=== PATIENT | male | born 1965 | race Hispanic/Latino ===

== ENCOUNTER → 2017-10-02 | Outpatient (CLI) | payer OTHER, MEDICARE ==
[~2017-10-02] MED LIST: AMIT50TA3 PO; CHLO25TA3 PO; GLIP10TA9 PO; ISOS1POW PO; LISI2.5T2 PO; METF10004 PO; PIOG30TA26 PO; PROP10TA10 PO
== END | disposition home or self-care (01) ==
LOC: RAH 07:39
PROVIDERS: ATTEND Internal Medicine Gastroenterology
DX: R18.8 Other ascites (principal); R16.1 Splenomegaly, not elsewhere classified; K74.60 Unspecified cirrhosis of liver
CPT/HCPCS: 76700

== ENCOUNTER 2018-06-05 11:02 | Observation (INO) | payer OTHER, MEDICARE ==
[~2018-06-05] VITALS: Ht 170.2 cm; Wt 94.0 kg
[~2018-06-05 11:02] MED LIST changes: +METF-446 PO; -METF10004 PO; -PIOG30TA26 PO; +PIOG30TA70 PO
[2018-06-05 11:39] LABS: BASOPHILS % (AUTO) 0.3 % (0.0-5.0); HEMATOCRIT 41.6 % (42-54); LYMPHOCYTES % (AUTO) 17.2 % (21.0-51.0); MEAN CORPUSCULAR HEMOGLOBIN 29.5 pg (27.0-33.0); MEAN CORPUSCULAR HGB CONC 33.4 g/dL (32.0-36.0); MEAN CORPUSCULAR VOLUME 88.4 fL (79-99); MONOCYTES % (AUTO) 9.2 % (3.0-13.0); NEUTROPHILS % (AUTO) 68.3 % (40.0-77.0); NUCLEATED RED BLOOD CELLS 0.1 % (0.0-0.19); PLATELET COUNT (AUTO) 51 K/uL (130-400); RED BLOOD CELL COUNT(AUTO) 4.71 MIL/uL (4.50-6.20); RED CELL DISTRIBUTION WIDTH 15.8 % (11.0-15.5); WHITE BLOOD COUNT (AUTO) 4.2 K/uL (4.8-10.8)
[2018-06-05 11:50] LABS: CREATININE 1.1 mg/dL (0.5-1.5)
[2018-06-05 11:55] LABS: ALBUMIN 3.1 g/dL (3.5-5.0); BILIRUBIN,TOTAL 1.7 mg/dL (0.2-1.0); TOTAL PROTEIN, SERUM 7.2 g/dL (6.0-8.3)
[2018-06-05] MEDS ORDERED: IOHEXOL-350 75 ML VIAL IV ONE (12:50)
[2018-06-05] MEDS ORDERED: MORPHINE SULFATE 4 MG/1ML SYG ONE (12:52)
[2018-06-05] MEDS ORDERED: ONDANSETRON HCL 4 MG/2 ML VIAL ONE (12:52)
[2018-06-05 13:10] LABS: APPEARANCE,URINE Clear (CLEAR); BILIRUBIN,URINE Small (NEGATIVE); COLOR,URINE Dark Yellow (YELLOW); GLUCOSE, URINE (UA) Negative (NEGATIVE); KETONES,URINE Negative (NEGATIVE); LEUKOCYTE ESTERASE ,URINE Negative (NEGATIVE); NITRATE,URINE Negative (NEGATIVE); OCCULT BLOOD,URINE Negative (NEGATIVE); PH,URINE 5.5 (5.0-8.0); PROTEIN,URINE POS 2+ (NEGATIVE)
[2018-06-05 13:21] LABS: BACTERIA,URINE Rare /HPF (None Seen); HYALINE CASTS, URINE 0-1 /LPF (0-1 /LPF); MUCUS,URINE Moderate LPF (None Seen); RBC,URINE 0-1 /HPF (0-1); SQUAMOUS EPITHELIAL CELL,UR Rare /HPF (0-2); WBC,URINE 0-1 /HPF (0-1)
[2018-06-05] MEDS ORDERED: CLINDAMYCIN 900 MG/D5% WATER 50 ML IV ONE (15:14)
[2018-06-05] MEDS ORDERED: MORPHINE SULFATE 2 MG/ML 1ML SYG IV PRN (15:15)
[2018-06-05] MEDS ORDERED: MORPHINE SULFATE 4 MG/1ML SYG IV PRN (15:15)
[2018-06-05 16:53] VITALS: BP 135/76
[2018-06-05] MEDS ORDERED: PRAV10TA39 PO (17:14)
[2018-06-05] MEDS: MEROPENEM 500 MG VIAL IVP SCH ×2 (18:39→22:18)
[2018-06-05] MEDS: SODIUM CHLORIDE 0.9% 1000ML 1,000 ML IV SCH (18:39)
[2018-06-05] MEDS: FUROSEMIDE 10 MG/ML 4ML VIAL IV SCH (18:39)
[2018-06-05] MEDS: METOPROLOL TARTRATE 25 MG TAB PO SCH ×2 (18:39→20:47)
[2018-06-05 19:00] VITALS: BP 152/69
[2018-06-05] MEDS: SPIRONOLACTONE 25 MG TAB PO SCH (20:47)
[2018-06-05 23:00] VITALS: BP 119/72
[2018-06-06] MEDS: SODIUM CHLORIDE 0.9% 1000ML 1,000 ML IV SCH ×2 (01:01→11:19)
[2018-06-06 03:00] VITALS: BP 149/74
[2018-06-06] MEDS: FUROSEMIDE 10 MG/ML 4ML VIAL IV SCH ×2 (04:50→16:45)
[2018-06-06 04:55] LABS: INR 1.21 (0.85-1.15); PROTHROMBIN TIME 12.7 SEC (9.6-11.6)
[2018-06-06] MEDS: MEROPENEM 500 MG VIAL IVP SCH ×3 (06:27→23:18)
[2018-06-06 08:00] VITALS: BP 144/65
[2018-06-06] MEDS: PANTOPRAZOLE SODIUM 40 MG TABLET.DR PO SCH (10:22)
[2018-06-06] MEDS: SPIRONOLACTONE 25 MG TAB PO SCH ×2 (10:24→21:52)
[2018-06-06] MEDS: METOPROLOL TARTRATE 25 MG TAB PO SCH ×2 (10:24→21:52)
[2018-06-06 11:56] VITALS: BP 140/64
[2018-06-06] MEDS ORDERED: GLUCAGON 1MG KIT 1 MG ML IM PRN (12:30)
[2018-06-06] MEDS ORDERED: DEXTROSE 50%-WATER 50 ML DISP.SYRIN IV PRN (12:30)
[2018-06-06 16:00] VITALS: BP 134/60
[2018-06-06] MEDS: INSULIN HUMULIN R 100 UNIT/ML 3ML SQ SCH ×2 (16:29→21:00)
[2018-06-06 19:00] VITALS: BP 119/75
[2018-06-06 23:00] VITALS: BP 139/76
[2018-06-07 03:00] VITALS: BP 159/71
[2018-06-07] MEDS: FUROSEMIDE 10 MG/ML 4ML VIAL IV SCH ×2 (04:56→16:55)
[2018-06-07 04:57] LABS: BASOPHILS % (AUTO) 0.5 % (0.0-5.0); EOSINOPHILS % (AUTO) 5.2 % (0.0-8.0); HEMATOCRIT 38.4 % (42-54); LYMPHOCYTES % (AUTO) 16.2 % (21.0-51.0); MEAN CORPUSCULAR HEMOGLOBIN 29.5 pg (27.0-33.0); MEAN CORPUSCULAR HGB CONC 33.7 g/dL (32.0-36.0); MEAN CORPUSCULAR VOLUME 87.5 fL (79-99); MONOCYTES % (AUTO) 9.4 % (3.0-13.0); NEUTROPHILS % (AUTO) 68.7 % (40.0-77.0); NUCLEATED RED BLOOD CELLS 0.1 % (0.0-0.19); PLATELET COUNT (AUTO) 46 K/uL (130-400); RED BLOOD CELL COUNT(AUTO) 4.39 MIL/uL (4.50-6.20); RED CELL DISTRIBUTION WIDTH 15.4 % (11.0-15.5); WHITE BLOOD COUNT (AUTO) 3.5 K/uL (4.8-10.8)
[2018-06-07 05:21] LABS: ALBUMIN 2.6 g/dL (3.5-5.0); BILIRUBIN,TOTAL 1.6 mg/dL (0.2-1.0); CREATININE 1.1 mg/dL (0.5-1.5); POTASSIUM 4.1 mmol/L (3.5-5.1); TOTAL PROTEIN, SERUM 6.5 g/dL (6.0-8.3)
[2018-06-07] MEDS: INSULIN HUMULIN R 100 UNIT/ML 3ML SQ SCH ×3 (05:42→16:30)
[2018-06-07] MEDS: MEROPENEM 500 MG VIAL IVP SCH ×2 (06:19→15:46)
[2018-06-07 08:04] VITALS: BP 130/54
[2018-06-07] MEDS: PANTOPRAZOLE SODIUM 40 MG TABLET.DR PO SCH (09:03)
[2018-06-07] MEDS: SPIRONOLACTONE 25 MG TAB PO SCH (09:03)
[2018-06-07 12:07] VITALS: BP 151/68
[2018-06-07] MEDS ORDERED: LEVO250S3 PO ×2 (13:07→16:20)
[2018-06-07] MEDS ORDERED: LACT10PA5 PO (13:11)
[2018-06-07] MEDS ORDERED: FURO20I IM (13:11)
[2018-06-07 16:02] VITALS: BP 157/72
[2018-06-07] MEDS ORDERED: LACT10SO8 PO (16:16)
[2018-06-07] MEDS ORDERED: FURO20I PO (16:16)
[2018-06-07] MEDS ORDERED: FURO20TA6 PO (16:28)
[2018-06-07] MEDS ORDERED: LACT10SO32 PO (16:28)
[2018-06-07] MEDS ORDERED: LEVO250T59 PO (16:28)
== END 2018-06-07 17:55 | disposition home or self-care (01) ==
LOC: EDH 11:02 → INTOOBSV 14:55 → EDHIP 14:55 → EDBD 14:55 → 3BH 16:22
PROVIDERS: ADMIT Internal Medicine; ATTEND Internal Medicine
DX: K74.60 Unspecified cirrhosis of liver (principal); R18.8 Other ascites; I69.322 Dysarthria following cerebral infarction; I69.354 Hemiplegia and hemiparesis following cerebral infarction affecting left non-dominant side; I13.0 Hypertensive heart and chronic kidney disease with heart failure and stage 1 through stage 4 chronic kidney disease, or unspecified chronic kidney disease; I50.32 Chronic diastolic (congestive) heart failure; E11.22 Type 2 diabetes mellitus with diabetic chronic kidney disease; D69.59 Other secondary thrombocytopenia; D72.819 Decreased white blood cell count, unspecified; Z99.3 Dependence on wheelchair; K76.6 Portal hypertension; K42.9 Umbilical hernia without obstruction or gangrene; K57.30 Diverticulosis of large intestine without perforation or abscess without bleeding; E44.0 Moderate protein-calorie malnutrition; J44.9 Chronic obstructive pulmonary disease, unspecified; E78.5 Hyperlipidemia, unspecified; N18.9 Chronic kidney disease, unspecified; Z82.49 Family history of ischemic heart disease and other diseases of the circulatory system; Z82.5 Family history of asthma and other chronic lower respiratory diseases; Z83.3 Family history of diabetes mellitus; Z87.891 Personal history of nicotine dependence; Z23 Encounter for immunization
CPT/HCPCS: 36415 ×3; 74177; 80053 ×2; 81001; 82948 ×9; 83690; 85025 ×2; 85610; 96374; 96375; 96376 ×3; 99285; A4218 ×6; G0008; G0378 ×51; J1940 ×5; J2185 ×7; J2270; J2405; J3490; J7030 ×2; Q2038; Q9967

== ENCOUNTER → 2018-06-24 | Outpatient (CLI) | payer OTHER, MEDICARE ==
[~2018-06-24] MED LIST changes: +FURO20TA6 PO; +LACT10SO32 PO; +LEVO250T59 PO; +PRAV10TA39 PO
== END | disposition home or self-care (01) ==
LOC: RAH 07:53
PROVIDERS: ATTEND Internal Medicine Gastroenterology
DX: R18.8 Other ascites (principal); K74.69 Other cirrhosis of liver
CPT/HCPCS: 76700

== ENCOUNTER 2018-08-04 05:30 | Day surgery (SDC) | payer OTHER, MEDICARE ==
[2018-08-04] VITALS (7 sets, daily range): BP systolic 99–177; BP diastolic 38–73
[~2018-08-04] VITALS: Ht 170.2 cm; Wt 89.4 kg
[~2018-08-04 05:30] MED LIST changes: -FURO20TA6 PO; -ISOS1POW PO; +ISOS20TA7 PO; -LACT10SO32 PO; -LEVO250T59 PO; +LISI-617 PO; -LISI2.5T2 PO
[2018-08-04] MEDS ORDERED: SODIUM CHLORIDE 0.9% 1000ML 1,000 ML IV ONE (05:42)
[2018-08-04] MEDS ORDERED: PROPOFOL 10 MG/ML 20ML VIAL IV ONE (06:40)
== END 2018-08-04 07:34 | disposition home or self-care (01) ==
LOC: ENDO 05:30 → DAH 05:30 → ENDO 07:34
PROVIDERS: ATTEND Internal Medicine Gastroenterology
DX: K31.7 Polyp of stomach and duodenum (principal); K29.50 Unspecified chronic gastritis without bleeding; K31.89 Other diseases of stomach and duodenum; E78.5 Hyperlipidemia, unspecified; I10 Essential (primary) hypertension; Z86.73 Personal history of transient ischemic attack (TIA), and cerebral infarction without residual deficits; I12.9 Hypertensive chronic kidney disease with stage 1 through stage 4 chronic kidney disease, or unspecified chronic kidney disease; E11.22 Type 2 diabetes mellitus with diabetic chronic kidney disease; N18.9 Chronic kidney disease, unspecified; Z90.49 Acquired absence of other specified parts of digestive tract; Z68.30 Body mass index [BMI] 30.0-30.9, adult; Z79.899 Other long term (current) drug therapy
CPT/HCPCS: 43239; 43251; 82948 ×2; 88305; 88312; 93005; A4606; J2704; J7030